=== PATIENT | male | born 1950 | race Caucasian/White ===

== ENCOUNTER 2016-12-17 06:33 | Day surgery (SDC) | payer MEDICARE, BC ==
[2016-12-17] MEDS ORDERED: Lidocaine 2% Viscous Solution 15 ML Cup ONE (06:54)
[2016-12-17] MEDS ORDERED: Lidocaine 4% Top Soln 50 ML Bottle ONE (06:54)
[2016-12-17] MEDS ORDERED: Albuterol/Ipratropium 3.0-0.5 MG/3 ML Neb Soln NEB ONE (07:05)
[2016-12-17] MEDS ORDERED: fentaNYL 100 MCG/2 ML SDV ONE (07:12)
[2016-12-17] MEDS ORDERED: Propofol 200 MG/20 ML SDV ONE (07:12)
[2016-12-17] MEDS ORDERED: Midazolam 1 MG/ML 2 ML SDV ONE (07:13)
[2016-12-17] MEDS ORDERED: Lidocaine 4% Top Soln 4 ML LTA Syringe ONE (07:13)
[2016-12-17] MEDS ORDERED: Dextrose 5%-Lactated Ringers 1,000 ML IV SCH (07:15)
[2016-12-17] MEDS ORDERED: Enoxaparin 100 MG/1 ML Syringe SUBCUT ONE (09:45)
[2016-12-17 11:23] VITALS: BP 124/80
--- NOTE | 2016-12-17 19:21 | OR ---
DATE OF PROCEDURE: 12/17/2016 PREOPERATIVE DIAGNOSIS: Right hilar mass with mediastinal lymphadenopathy. POSTOPERATIVE DIAGNOSIS: Right hilar mass with mediastinal lymphadenopathy. OPERATIVE PROCEDURE: 1. Flexible bronchial washing with tracheobronchial washings:. a. Transbronchial brush biopsies of right upper lobe (01943). b. Bronchoalveolar lavage to the right upper lobe (08551). c. Transbronchial needle aspiration biopsy of precarinal node ([id number]). ANESTHESIA: Topical plus IV sedation. INDICATION FOR PROCEDURE: A 66-year-old male recently presenting with some increasing respiratory symptoms. 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 The patient also has a well-defined mediastinal lymphadenopathy and one of the more well-defined area is noted anterior to the distal most trachea more or less at the origin of the edgar. The plan will be to proceed with a flexible bronchoscopy with brushings, biopsies, and/or bronchoalveolar lavage as indicated along with a transbronchial needle aspiration biopsy of the precarinal node. Potential risks of the procedure were reviewed with the patient and including bleeding, infection, pneumohemothorax and such were reviewed, and they wished to proceed. DETAILS OF PROCEDURE: The patient was taken to the operating room and placed in a supine position. IV sedation was administered, after which the translaryngeal injection of lidocaine was placed. The bronchoscope was then passed through the right side of the nose, visualized hypopharynx and larynx were unremarkable. Cord motion was symmetrical within the trachea. There was no significant tracheal splaying. There was some mucoid secretions diffusely present which were removed with a combination of lidocaine and saline injections. The upper tracheobronchial tree was unremarkable. On the right side, the posterior segment of right upper lobe was somewhat reddened and thickened. No visible tumor was seen; however, to this point diffuse tracheobronchial washings were obtained. Following this, brushings were obtained in the posterior segment of the right upper lobe, followed by a bronchoalveolar lavage, and these were both sent for cytologic evaluation. Minimal bleeding from the brushing and lavage sites was noted. A transbronchial needle aspiration biopsy at two locations in the area just proximal to the edgar and anteriorly were then made. These were then sent in [place]com[place] solution and at that point, no bleeding or other problems noted. The procedure was then concluded. The patient was taken to the recovery room in satisfactory condition. The plan at this point will be to continue the patient on Lovenox and to reestablish whether or not today's biopsies or diagnostic, we should probably know that by later tomorrow afternoon and if these are not diagnostic then the best option would be set up for some needle biopsies, which would be best not to be re-coumadinized. We will contact the patient's tomorrow or the next day depending on when these results become available regarding the plan. The patient being set up for a PET scan in [place] as this can be done earlier than in [place] and then Medical Oncology was going to be set up for thereafter in [place]. Brayan Rhodes MD /[id number]
== END 2016-12-17 11:55 | disposition home or self-care (01) ==
LOC: JP.SDS 06:33
PROVIDERS: ATTEND Surgery
DX: J98.4 Other disorders of lung (principal); J44.9 Chronic obstructive pulmonary disease, unspecified; I87.2 Venous insufficiency (chronic) (peripheral); Z87.891 Personal history of nicotine dependence
CPT/HCPCS: 31623; 31624; 31629; 36415; 85610; 87015; 87070; 87102; 87116; 87205; 87206; 87220; A9270; J2250; J2704; J3010; J7042; J7620; 88112; 88305

== ENCOUNTER 2017-01-16 06:27 | Day surgery (SDC) | payer MEDICARE, BC ==
[2017-01-16] MEDS ORDERED: Lidocaine 1% 50 ML MDV ONE (06:42)
[2017-01-16] MEDS ORDERED: Bupivacaine 0.5%/EPINEPHrine 1:200,000 50 ML MDV ONE (06:43)
[2017-01-16] MEDS ORDERED: Dextrose 5%-Lactated Ringers 1,000 ML IV SCH (06:45)
[2017-01-16] MEDS: ceFAZolin 2 GM in Premix Bag 1 BAG IV ONE ×2 (07:53→11:03)
[2017-01-16] MEDS ORDERED: fentaNYL 100 MCG/2 ML SDV ONE (08:00)
[2017-01-16] MEDS ORDERED: Albuterol/Ipratropium 3.0-0.5 MG/3 ML Neb Soln NEB ONE (08:00)
[2017-01-16] MEDS ORDERED: Propofol 200 MG/20 ML SDV ONE (08:00)
[2017-01-16] MEDS ORDERED: Midazolam 1 MG/ML 2 ML SDV ONE (08:00)
[2017-01-16 10:10] VITALS: BP 121/75
--- NOTE | 2017-01-17 12:21 | OR ---
DATE OF PROCEDURE: 01/16/2017 PREOPERATIVE DIAGNOSIS: Indications for central venous access. POSTOPERATIVE DIAGNOSIS: Indications for central venous access. OPERATIVE PROCEDURE: Insertion of Bard PowerPort via left subclavian vein approach (41510). ANESTHESIA: Local plus IV sedation. OCULAR CARE TECHNOLOGIST: YVONNE Aranda. 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 He is to undergo chemotherapy. To facilitate the chemotherapy treatment, a central access was to be placed. Potential risks of procedure including bleeding, infection, pneumothorax, problems with port becoming infected or occluded were all reviewed with the patient and , and they wished to proceed. DETAILS OF PROCEDURE: The patient was taken to the operating room and placed in a supine position. IV sedation was administered, after which, the upper chest and neck areas were prepped and draped. The left subclavian vein was then cannulated and guidewire manipulated from there into the superior vena cava. Some additional local was injected and a transverse infraclavicular incision was made and carried down through the skin and subcutaneous tissue, pectoralis major fascia, subfascial pouch was then created bluntly, and the port was then placed into the pocket. Catheter was cut such that the tip would lie in the superior vena cava right atrial junction. Over the introducer and peel-away catheter, a Bard port catheter was then placed and good positioning was confirmed fluoroscopically. The incision was then closed with 2 layers of 3-0 Vicryl stitch deep and a 4-0 Vicryl subcuticular stitch. Dressing was then applied after the port had been aspirated with good return, and then re-flushed with heparinized saline. There were no evident complications. The patient was taken to the recovery room in satisfactory condition. Brayan Rhodes MD /[id number]
== END 2017-01-16 10:12 | disposition home or self-care (01) ==
LOC: JP.SDS 06:27
PROVIDERS: ATTEND Surgery
DX: Z45.2 Encounter for adjustment and management of vascular access device (principal); C34.2 Malignant neoplasm of middle lobe, bronchus or lung; Z79.01 Long term (current) use of anticoagulants
CPT/HCPCS: 36415; 36561; 85610; 94640; C1788; J0690; J1642; J2250; J2704; J3010; J7042; J7620

== ENCOUNTER 2017-11-07 10:05 | Inpatient (IN) | payer MEDICARE, BC ==
[2017-11-07] MEDS ORDERED: Albuterol 0.083% 2.5 MG/3 ML Neb Soln NEB ONE ×2 (10:26→11:49)
[2017-11-07] MEDS ORDERED: methylPREDNISolone Sodium Succinate 125 MG/2 ML SDV IVPUSH ONE (10:26)
--- NOTE | 2017-11-07 10:45 | EDM.PDOC ---
ED HPI GENERAL MEDICAL PROBLEM - General Chief Complaint: Respiratory Problem Stated Complaint: SHORTNESS OF BREATH Time Seen by Provider: 11/07/17 10:10 Source of Information: Reports: Patient, Family History Limitations: Reports: No Limitations - History of Present Illness INITIAL COMMENTS - FREE TEXT/NARRATIVE: pt arrived with a history of being very sob. He had very low sats when the first responders arrived. He seemed to not oxgenate as well when the moisture was going. He has a history of lung ca and copd. He uses o2 continuously at home. He has been coughing up some yellow sputum. Onset: Today, Gradual Duration: Hour(s): Location: Reports: Chest Associated Symptoms: Reports: Cough, Shortness of Breath, Weakness - Related Data Allergies Allergy/AdvReac Type Severity Reaction Status Date / Time No Known Allergies Allergy Verified 11/07/17 10:11 Home Meds: Home Meds Multivitamin [Multi-Vitamin Daily] 1 tab PO DAILY 10/02/15 [History] Fluticasone/Salmeterol [Advair Hfa 230-21 Mcg Inhaler] 2 puff INH BID 11/23/15 [ History] Tiotropium [Spiriva Handihaler] 1 diskus INH DAILY 10/12/16 [History] Albuterol/Ipratropium [DuoNeb 3.0-0.5 MG/3 ML] 3 ml INH Q4H PRN 12/13/16 [ History] Tamsulosin [Tamsulosin 24 Hr] 0.4 mg PO DAILY 12/13/16 [History] Albuterol Sulfate [Proair Hfa] 2 puff INH Q4HR PRN 12/17/16 [History] Venlafaxine [Effexor XR] 37.5 mg PO DAILY 01/14/17 [History] Gabapentin [Neurontin] 100 mg PO TID 11/07/17 [History] Rivaroxaban [Xarelto] 20 mg PO DAILY 11/07/17 [History] Past Medical History HEENT History: Reports: Hard of Hearing, Impaired Vision Cardiovascular History: Reports: Blood Clots/VTE/DVT Other Cardiovascular History: blood clot in lung. Right ventricle enlargement Respiratory History: Reports: Bronchitis, Recurrent, COPD, Pneumonia, Recurrent , Sleep Apnea, SOB, Other (See Below) Other Respiratory History: lung ca Gastrointestinal History: Reports: Colon Polyp, GERD, Hemorrhoids Genitourinary History: Reports: BPH Other Genitourinary History: testicular hernia as kid? prostate level elevated to 8 Musculoskeletal History: Reports: Fracture Neurological History: Reports: Concussion Psychiatric History: Reports: Depression Hematologic History: Reports: Anticoagulation Therapy Oncologic (Cancer) History: Reports: Lung - Infectious Disease History Infectious Disease History: Reports: Chicken Pox, Measles, Mumps - Past Surgical History Head Surgeries/Procedures: Reports: None HEENT Surgical History: Reports: None Cardiovascular Surgical History: Reports: None, Vascular Surgery Respiratory Surgical History: Reports: Lung Biopsies, Other (See Below) GI Surgical History: Reports: Colon, EGD Male Surgical History: Reports: Other (See Below) Other Male Surgeries/Procedures: testicular surgery as kid Musculoskeletal Surgical History: Reports: None Dermatological Surgical History: Reports: None Social & Family History - Family History Family Medical History: Noncontributory - Tobacco Use Smoking Status *Q: Former Smoker Years of Tobacco use: 50 Packs/Tins Daily: 1 Used Tobacco, but Quit: Yes Month/Year Tobacco Last Used: Second Hand Smoke Exposure: No - Caffeine Use Caffeine Use: Reports: Coffee - Alcohol Use Days Per Week of Alcohol Use: 0 Number of Drinks Per Day: 1 Total Drinks Per Week: 0 - Recreational Drug Use Recreational Drug Use: No ED ROS GENERAL - Review of Systems Review Of Systems: See Below Constitutional: Reports: Malaise, Decreased Appetite HEENT: Reports: No Symptoms Respiratory: Reports: Shortness of Breath, Wheezing Cardiovascular: Reports: No Symptoms Endocrine: Reports: No Symptoms GI/Abdominal: Reports: No Symptoms : Reports: No Symptoms Musculoskeletal: Reports: No Symptoms Skin: Reports: No Symptoms Neurological: Reports: No Symptoms ED EXAM, GENERAL - Physical Exam Exam: See Below Free Text/Narrative:: pt arrived with increased sob. He had very low o2 satts at home. He was slightly confused at that time. He has been doing alot of talking in his sleep. Exam Limited By: No Limitations General Appearance: Alert, Anxious, Mild Distress, Other (pupils are equal and reactive. ) Ears: Normal TMs Nose: Normal Inspection Throat/Mouth: Normal Inspection Head: Atraumatic Neck: Normal Inspection Respiratory/Chest: Decreased Breath Sounds, Rales, Wheezing Cardiovascular: Regular Rate, Rhythm GI/Abdominal: Soft, Non-Tender (Male) Exam: Normal Inspection Rectal (Males) Exam: Deferred Back Exam: Normal Inspection Extremities: Normal Inspection Neurological: Alert, Oriented, Other (pt is able to answer questions appropiately. ) Psychiatric: Depressed Mood Course - Vital Signs Last Recorded V/S: Last Vital Signs Temp 36.1 C 11/07/17 10:07 Pulse 101 H 11/07/17 12:56 Resp 16 11/07/17 10:07 BP 115/83 11/07/17 11:55 Pulse Ox 92 L 11/07/17 11:55 - Orders/Labs/Meds Orders: Active Orders 24 hr Category Date Time Status EKG Documentation Completion [RC] ASDIRECTED Care 11/07/17 11:53 Active RT Aerosol Therapy [RC] ASDIRECTED Care 11/07/17 10:26 Active RT Aerosol Therapy [RC] ASDIRECTED Care 11/07/17 11:49 Active CULTURE RESPIRATORY + SMEAR [RM] Stat Lab 11/07/17 12:45 Results Sodium Chloride 0.9% [Normal Saline] 1,000 ml Med 11/07/17 12:00 Active IV ASDIRECTED EKG 12 Lead [EK] Routine Ther 11/07/17 11:53 Ordered Medication Orders Sodium Chloride (Normal Saline) 1,000 mls @ 250 mls/hr IV ASDIRECTED UZAIR Last Admin: 11/07/17 12:29 Dose: 250 mls/hr Labs: Laboratory Tests 11/07/17 11/07/17 11/07/17 Range/Units 10:46 10:55 10:55 WBC 4.6 (4.5-11.0) K/uL RBC 3.63 L (4.30-5.90) M/uL Hgb 11.2 L D (12.0-15.0) g/dL Hct 33.1 L (40.0-54.0) % MCV 91 (80-98) fL MCH 31 (27-31) pg MCHC 34 (32-36) % Plt Count 153 (150-400) K/uL Neut % (Auto) 84 H (36-66) % Lymph % (Auto) 6 L (24-44) % [place] % (Auto) 8 H (2-6) % Eos % (Auto) 2 (2-4) % Baso % (Auto) 0 (0-1) % Puncture Site ABG pH (7.350-7.450) ABG pCO2 (35.0-42.0) mmHg ABG pO2 (75.0-100.0) mmHg ABG HCO3 (22.0-26.0) mmol/L ABG Total CO2 (23.0-27.0) mmol/L ABG O2 Saturation (95.0-98.0) % ABG O2 Content (15.0-23.0) %vol ABG Base Excess mm/L ABG Hemoglobin (13.5-18.0) g/dL ABG Oxyhemoglobin % ABG Carboxyhemoglobin (0.0-1.6) % ABG Methemoglobin % Neo Test O2 Delivery Device Oxygen Flow Rate L Sodium 123 L (140-148) mmol/L Potassium 4.1 (3.6-5.2) mmol/L Chloride 85 L (100-108) mmol/L Carbon Dioxide 32 (21-32) mmol/L Anion Gap 10.1 (5.0-14.0) mmol/L BUN 9 D (7-18) mg/dL Creatinine 0.6 L (0.8-1.3) mg/dL Est Cr Clr Drug Dosing 104.37 mL/min Estimated GFR (MDRD) > 60 (>60) Glucose 137 H (74-106) mg/dL Calcium 9.2 (8.5-10.1) mg/dL Total Bilirubin 0.4 (0.2-1.0) mg/dL AST 25 (15-37) U/L ALT 23 (12-78) U/L Alkaline Phosphatase 125 H D (46-116) U/L NT-Pro-B Natriuret Pep 457 H (5-125) pg/mL Total Protein 7.0 (6.4-8.2) g/dL Albumin 3.1 L (3.4-5.0) g/dL Globulin 3.9 H (2.3-3.5) g/dL Albumin/Globulin Ratio 0.8 L (1.2-2.2) 11/07/17 Range/Units 12:03 WBC (4.5-11.0) K/uL RBC (4.30-5.90) M/uL Hgb (12.0-15.0) g/dL Hct (40.0-54.0) % MCV (80-98) fL MCH (27-31) pg MCHC (32-36) % Plt Count (150-400) K/uL Neut % (Auto) (36-66) % Lymph % (Auto) (24-44) % [place] % (Auto) (2-6) % Eos % (Auto) (2-4) % Baso % (Auto) (0-1) % Puncture Site Rt radial ABG pH 7.464 H (7.350-7.450) ABG pCO2 42.9 H (35.0-42.0) mmHg ABG pO2 57.6 L (75.0-100.0) mmHg ABG HCO3 30.4 H (22.0-26.0) mmol/L ABG Total CO2 27.5 H (23.0-27.0) mmol/L ABG O2 Saturation 89.4 L (95.0-98.0) % ABG O2 Content 13.9 L (15.0-23.0) %vol ABG Base Excess 6.3 mm/L ABG Hemoglobin 11.2 L (13.5-18.0) g/dL ABG Oxyhemoglobin 87.7 % ABG Carboxyhemoglobin 1.3 (0.0-1.6) % ABG Methemoglobin 0.6 % Neo Test Pass O2 Delivery Device Nasal cannula Oxygen Flow Rate 3 L Sodium (140-148) mmol/L Potassium (3.6-5.2) mmol/L Chloride (100-108) mmol/L Carbon Dioxide (21-32) mmol/L Anion Gap (5.0-14.0) mmol/L BUN (7-18) mg/dL Creatinine (0.8-1.3) mg/dL Est Cr Clr Drug Dosing mL/min Estimated GFR (MDRD) (>60) Glucose (74-106) mg/dL Calcium (8.5-10.1) mg/dL Total Bilirubin (0.2-1.0) mg/dL AST (15-37) U/L ALT (12-78) U/L Alkaline Phosphatase (46-116) U/L NT-Pro-B Natriuret Pep (5-125) pg/mL Total Protein (6.4-8.2) g/dL Albumin (3.4-5.0) g/dL Globulin (2.3-3.5) g/dL Albumin/Globulin Ratio (1.2-2.2) Meds: Medications Generic Name Dose Route Start Last Admin Trade Name Freq PRN Reason Stop Dose Admin Sodium Chloride 1,000 mls @ 250 mls/hr 11/07/17 12:00 11/07/17 12:29 Normal Saline IV 250 mls/hr ASDIRECTED UZAIR Administration Discontinued Medications Generic Name Dose Route Start Last Admin Trade Name Freq PRN Reason Stop Dose Admin Albuterol 2.5 mg 11/07/17 10:26 11/07/17 10:47 Proventil Neb Soln NEB 11/07/17 10:27 2.5 mg ONETIME ONE Administration Albuterol 2.5 mg 11/07/17 11:49 11/07/17 12:31 Proventil Neb Soln NEB 11/07/17 11:50 2.5 mg ONETIME ONE Administration Diltiazem HCl 10 mg 11/07/17 12:33 11/07/17 12:56 Diltiazem IVPUSH 11/07/17 12:34 Not Given ONETIME ONE Methylprednisolone Sodium Succinate 125 mg 11/07/17 10:26 11/07/17 11:01 Solu-Medrol IVPUSH 11/07/17 10:27 125 mg ONETIME ONE Administration - Re-Assessments/Exams Free Text/Narrative Re-Assessment/Exam: 11/07/17 12:34 ekg shows possible atrial fib. He coughed up some sputum which did appear very purulent. His chest xray show marked changes but does not look different from the previous film. His blood gases do not show co2 retention. 11/07/17 12:36 His na is 123 Departure - Departure Time of Disposition: 13:17 Disposition: Admitted As Inpatient 64 Condition: Fair Clinical Impression: Atrial fibrillation, Bronchitis, Hyponatremia, Lung cancer - Discharge Information Referrals: Mj Shah MD [Primary Care Provider] - Forms: ED Department Discharge Care Plan Goals: admit to Dr cruz - My Orders Last 24 Hours: My Active Orders 11/07/17 10:26 RT Aerosol Therapy [RC] ASDIRECTED 11/07/17 11:49 RT Aerosol Therapy [RC] ASDIRECTED 11/07/17 11:53 EKG Documentation Completion [RC] ASDIRECTED EKG 12 Lead [EK] Routine 11/07/17 12:00 Sodium Chloride 0.9% [Normal Saline] 1,000 ml IV ASDIRECTED 11/07/17 12:45 CULTURE RESPIRATORY + SMEAR [RM] Stat - Assessment/Plan Last 24 Hours: My Active Orders 11/07/17 10:26 RT Aerosol Therapy [RC] ASDIRECTED 11/07/17 11:49 RT Aerosol Therapy [RC] ASDIRECTED 11/07/17 11:53 EKG Documentation Completion [RC] ASDIRECTED EKG 12 Lead [EK] Routine 11/07/17 12:00 Sodium Chloride 0.9% [Normal Saline] 1,000 ml IV ASDIRECTED 11/07/17 12:45 CULTURE RESPIRATORY + SMEAR [RM] Stat
--- NOTE | 2017-11-07 11:26 | CR ---
Portable chest Comparison: August 2017. Findings: There is a [id number] catheter on the left which is unchanged. There is hyperinflation c onsistent with COPD. There is chronic fibrosis throughout the right middle and lower lung elise. The re are also fibrotic changes on the left. There are no acute infiltrates or effusions. Impression: 1. COPD. 2. Chronic interstitial fibrosis.
[2017-11-07] MEDS ORDERED: Sodium Chloride 0.9% 1,000 ML IV SCH (12:00)
[2017-11-07] MEDS ORDERED: Diltiazem 25 MG/5 ML SDV IVPUSH ONE (12:33)
--- NOTE | 2017-11-07 13:50 | PCM.HP ---
H&P History of Present Illness - General Date of Service: 11/07/17 Admit Problem/Dx: Source of Information: Patient, Family, Provider, RN Notes Reviewed History Limitations: Reports: No Limitations - History of Present Illness Initial Comments - Free Text/Narative: Mr. Govea is a 67-year-old gentleman who is admitted through the emergency room with progressive history of increased shortness of breath, significantly worse over the past 2 days. He has a known history of COPD which is oxygen dependent. He also in the past year has been diagnosed with lung cancer and has received chemotherapy as well as recent radiation therapy. Currently is back on chemotherapy having received 2 cycles of his current regimen. Over the past few days his developed a cough productive of colored sputum with marked increase in shortness of breath. Chest x-ray obtained in the emergency department shows no acute findings. White blood cell count is within normal range, arterial blood gases show hypoxia and hypercapnia. Oxygen saturations remain below desired range despite supplemental oxygen. He was also found to be tachycardic on initial evaluation and initial EKG shows evidence of atrial fibrillation with rapid ventricular response. He is now spontaneously converted and has a resting sinus tachycardia. - Related Data Allergies/Adverse Reactions: Allergies Allergy/AdvReac Type Severity Reaction Status Date / Time No Known Allergies Allergy Verified 11/07/17 10:11 Home Medications: Home Meds Multivitamin [Multi-Vitamin Daily] 1 tab PO DAILY 10/02/15 [History] Fluticasone/Salmeterol [Advair Hfa 230-21 Mcg Inhaler] 2 puff INH BID 11/23/15 [ History] Tiotropium [Spiriva Handihaler] 1 diskus INH DAILY 10/12/16 [History] Albuterol/Ipratropium [DuoNeb 3.0-0.5 MG/3 ML] 3 ml INH Q4H PRN 12/13/16 [ History] Tamsulosin [Tamsulosin 24 Hr] 0.4 mg PO DAILY 12/13/16 [History] Albuterol Sulfate [Proair Hfa] 2 puff INH Q4HR PRN 12/17/16 [History] Venlafaxine [Effexor XR] 37.5 mg PO DAILY 01/14/17 [History] Gabapentin [Neurontin] 100 mg PO TID 11/07/17 [History] Rivaroxaban [Xarelto] 20 mg PO DAILY 11/07/17 [History] Past Medical History HEENT History: Reports: Hard of Hearing, Impaired Vision Cardiovascular History: Reports: Blood Clots/VTE/DVT Other Cardiovascular History: blood clot in lung. Right ventricle enlargement Respiratory History: Reports: Bronchitis, Recurrent, COPD, Pneumonia, Recurrent , Sleep Apnea, SOB, Other (See Below) Other Respiratory History: lung ca Gastrointestinal History: Reports: Colon Polyp, GERD, Hemorrhoids Genitourinary History: Reports: BPH Other Genitourinary History: testicular hernia as kid? prostate level elevated to 8 Musculoskeletal History: Reports: Fracture Neurological History: Reports: Concussion Psychiatric History: Reports: Depression Hematologic History: Reports: Anticoagulation Therapy Oncologic (Cancer) History: Reports: Lung - Infectious Disease History Infectious Disease History: Reports: Chicken Pox, Measles, Mumps - Past Surgical History Head Surgeries/Procedures: Reports: None HEENT Surgical History: Reports: None Cardiovascular Surgical History: Reports: None, Vascular Surgery Respiratory Surgical History: Reports: Lung Biopsies, Other (See Below) GI Surgical History: Reports: Colon, EGD Male Surgical History: Reports: Other (See Below) Other Male Surgeries/Procedures: testicular surgery as kid Musculoskeletal Surgical History: Reports: None Dermatological Surgical History: Reports: None Social & Family History - Family History Family Medical History: Noncontributory - Tobacco Use Smoking Status *Q: Former Smoker Years of Tobacco use: 50 Packs/Tins Daily: 1 Used Tobacco, but Quit: Yes Month/Year Tobacco Last Used: 01 Second Hand Smoke Exposure: No - Caffeine Use Caffeine Use: Reports: Coffee - Alcohol Use Days Per Week of Alcohol Use: 0 Number of Drinks Per Day: 1 Total Drinks Per Week: 0 - Recreational Drug Use Recreational Drug Use: No H&P Review of Systems - Review of Systems: Review Of Systems: See Below General: Reports: Diaphoresis, Decreased Appetite. Denies: Fever, Chills HEENT: Reports: No Symptoms Pulmonary: Reports: Shortness of Breath, Wheezing, Cough, Sputum. Denies: Pleuritic Chest Pain, Hemoptysis Cardiovascular: Reports: Dyspnea on Exertion. Denies: Chest Pain, Palpitations , Orthopnea, PND, Edema, Lightheadedness, Syncope Gastrointestinal: Reports: No Symptoms Genitourinary: Reports: No Symptoms Musculoskeletal: Reports: No Symptoms Skin: Reports: No Symptoms Psychiatric: Reports: No Symptoms Neurological: Reports: No Symptoms Hematologic/Lymphatic: Reports: No Symptoms Immunologic: Reports: No Symptoms Exam - Exam Exam: See Below - Vital Signs Vital Signs: Last Vital Signs Temp 96.9 F 11/07/17 10:07 Pulse 101 H 11/07/17 12:56 Resp 16 11/07/17 10:07 BP 115/83 11/07/17 11:55 Pulse Ox 92 L 11/07/17 11:55 Weight: 140 lb - Exam Quality Assessment: Supplemental Oxygen, DVT Prophylaxis General: Alert, Oriented, Cooperative, Moderate Distress HEENT: Conjunctiva Clear, Hearing Intact, Normal Nasal Septum, Posterior Pharynx Clear, Pupils Equal. No: Mucosa Moist & [place]: Supple, Trachea Midline, +2 Carotid Pulse wo Bruit Lungs: Decreased Breath Sounds, Rhonchi, Wheezing. No: Crackles, Rales, Rub Cardiovascular: Regular Rhythm, Normal S1, Normal S2, Tachycardia. No: Systolic Murmur, Diastolic Murmur GI/Abdominal Exam: Soft, Non-Tender, No Organomegaly, No Distention, Hernia ( Umbilical) Back Exam: Normal Inspection, Full Range of Motion Extremities: Non-Tender, No Pedal Edema Skin: Warm, Dry, Intact Neurological: Cranial Nerves Intact, Strength Equal Bilateral, Normal Speech, Normal Tone, Sensation Intact. No: Focal Deficit Neuro Extensive - Mental Status: Alert, Oriented x3, Normal Mood/Affect, Normal Cognition, Memory Intact - Patient Data Lab Results Last 24 hrs: Laboratory Results - last 24 hr 11/07/17 11/07/17 11/07/17 Range/Units 10:46 10:55 10:55 WBC 4.6 (4.5-11.0) K/uL RBC 3.63 L (4.30-5.90) M/uL Hgb 11.2 L D (12.0-15.0) g/dL Hct 33.1 L (40.0-54.0) % MCV 91 (80-98) fL MCH 31 (27-31) pg MCHC 34 (32-36) % Plt Count 153 (150-400) K/uL Neut % (Auto) 84 H (36-66) % Lymph % (Auto) 6 L (24-44) % [place] % (Auto) 8 H (2-6) % Eos % (Auto) 2 (2-4) % Baso % (Auto) 0 (0-1) % Puncture Site ABG pH (7.350-7.450) ABG pCO2 (35.0-42.0) mmHg ABG pO2 (75.0-100.0) mmHg ABG HCO3 (22.0-26.0) mmol/L ABG Total CO2 (23.0-27.0) mmol/L ABG O2 Saturation (95.0-98.0) % ABG O2 Content (15.0-23.0) %vol ABG Base Excess mm/L ABG Hemoglobin (13.5-18.0) g/dL ABG Oxyhemoglobin % ABG Carboxyhemoglobin (0.0-1.6) % ABG Methemoglobin % Neo Test O2 Delivery Device Oxygen Flow Rate L Sodium 123 L (140-148) mmol/L Potassium 4.1 (3.6-5.2) mmol/L Chloride 85 L (100-108) mmol/L Carbon Dioxide 32 (21-32) mmol/L Anion Gap 10.1 (5.0-14.0) mmol/L BUN 9 D (7-18) mg/dL Creatinine 0.6 L (0.8-1.3) mg/dL Est Cr Clr Drug Dosing 104.37 mL/min Estimated GFR (MDRD) > 60 (>60) Glucose 137 H (74-106) mg/dL Calcium 9.2 (8.5-10.1) mg/dL Total Bilirubin 0.4 (0.2-1.0) mg/dL AST 25 (15-37) U/L ALT 23 (12-78) U/L Alkaline Phosphatase 125 H D (46-116) U/L NT-Pro-B Natriuret Pep 457 H (5-125) pg/mL Total Protein 7.0 (6.4-8.2) g/dL Albumin 3.1 L (3.4-5.0) g/dL Globulin 3.9 H (2.3-3.5) g/dL Albumin/Globulin Ratio 0.8 L (1.2-2.2) 11/07/17 Range/Units 12:03 WBC (4.5-11.0) K/uL RBC (4.30-5.90) M/uL Hgb (12.0-15.0) g/dL Hct (40.0-54.0) % MCV (80-98) fL MCH (27-31) pg MCHC (32-36) % Plt Count (150-400) K/uL Neut % (Auto) (36-66) % Lymph % (Auto) (24-44) % [place] % (Auto) (2-6) % Eos % (Auto) (2-4) % Baso % (Auto) (0-1) % Puncture Site Rt radial ABG pH 7.464 H (7.350-7.450) ABG pCO2 42.9 H (35.0-42.0) mmHg ABG pO2 57.6 L (75.0-100.0) mmHg ABG HCO3 30.4 H (22.0-26.0) mmol/L ABG Total CO2 27.5 H (23.0-27.0) mmol/L ABG O2 Saturation 89.4 L (95.0-98.0) % ABG O2 Content 13.9 L (15.0-23.0) %vol ABG Base Excess 6.3 mm/L ABG Hemoglobin 11.2 L (13.5-18.0) g/dL ABG Oxyhemoglobin 87.7 % ABG Carboxyhemoglobin 1.3 (0.0-1.6) % ABG Methemoglobin 0.6 % Neo Test Pass O2 Delivery Device Nasal cannula Oxygen Flow Rate 3 L Sodium (140-148) mmol/L Potassium (3.6-5.2) mmol/L Chloride (100-108) mmol/L Carbon Dioxide (21-32) mmol/L Anion Gap (5.0-14.0) mmol/L BUN (7-18) mg/dL Creatinine (0.8-1.3) mg/dL Est Cr Clr Drug Dosing mL/min Estimated GFR (MDRD) (>60) Glucose (74-106) mg/dL Calcium (8.5-10.1) mg/dL Total Bilirubin (0.2-1.0) mg/dL AST (15-37) U/L ALT (12-78) U/L Alkaline Phosphatase (46-116) U/L NT-Pro-B Natriuret Pep (5-125) pg/mL Total Protein (6.4-8.2) g/dL Albumin (3.4-5.0) g/dL Globulin (2.3-3.5) g/dL Albumin/Globulin Ratio (1.2-2.2) Result Diagrams: 11/07/17 10:55 11/07/17 10:55 Wilfrido Results Last 24 hrs: Microbiology 11/07/17 12:45 Gram Stain - Final Endotrachael Aspirate *Q Meaningful Use (ADM) - VTE *Q VTE Criteria *Q: VTE Pharmacological Contraindications *Q: High INR Value - VTE Risk Assess *Q Each Risk Factor Represents 1 Point: Abnormal Pulmonary Function (COPD) Total Score 1 Point Risk Factors: 1 Each Risk Factor Represents 2 Points: Age 60 - 74 Years, Malignancy (present or previous) Total Score 2 Point Risk Factors: 4 Each Risk Factor Represents 3 Points: History of DVT/PE Total Score 3 Point Risk Factors: 3 Each Risk Factor Represents 5 Points: None Total Score 5 Point Risk Factors: 0 Venous Thromboembolism Risk Factor Score *Q: 8 - Stroke *Q Stroke Criteria *Q: - AMI *Q AMI Criteria *Q: Problem List Initiated/Reviewed/Updated: Yes Orders Last 24hrs: Active Orders 24 hr Category Date Time Status Patient Status Manage Transfer [TRANSFER] Routine ADT 11/07/17 13:43 Ordered EKG Documentation Completion [RC] ASDIRECTED Care 11/07/17 11:53 Active RT Aerosol Therapy [RC] ASDIRECTED Care 11/07/17 10:26 Active RT Aerosol Therapy [RC] ASDIRECTED Care 11/07/17 11:49 Active CULTURE RESPIRATORY + SMEAR [RM] Stat Lab 11/07/17 12:45 Results Sodium Chloride 0.9% [Normal Saline] 1,000 ml Med 11/07/17 12:00 Active IV ASDIRECTED Resuscitation Status Routine Resus Stat 11/07/17 13:45 Ordered EKG 12 Lead [EK] Routine Ther 11/07/17 11:53 Ordered Medication Orders Sodium Chloride (Normal Saline) 1,000 mls @ 250 mls/hr IV ASDIRECTED UZAIR Last Admin: 11/07/17 12:29 Dose: 250 mls/hr Assessment/Plan Comment:: ASSESSMENT AND PLAN COPD EXACERBATION SECONDARY TO BRONCHITIS-no evidence of underlying infiltrate, he does have known lung cancer, currently receiving treatment. -Sputum culture -Levofloxacin 500 mg IV every 24 hours ACUTE ON CHRONIC HYPOXIC AND HYPERCAPNIC RESPIRATORY FAILURE -Supplemental oxygen as needed, goal oxygen saturation no greater than 92% to avoid further CO2 retention -Nebulized albuterol and duo nebs -Solu-Medrol 40 mg IV daily 6 hours -Consider use of noninvasive positive pressure ventilation if he experiences further respiratory compromise LUNG CANCER-metastatic, currently receiving palliative chemotherapy PREVIOUS HISTORY OF PULMONARY EMBOLI -Continue outpatient anticoagulation HYPONATREMIA-likely secondary to dehydration -IV normal saline for hydration -Recheck sodium level in a.m. PALLIATIVE CARE-he does not want to consider further aggressive interventions including intubation or mechanical ventilation MAINTENANCE ISSUES -DVT prophylaxis; current therapy should provide adequate DVT prophylaxis -GI prophylaxis; not indicated -Dickey catheter; not indicated -Nutrition; regular diet -Nicotine dependence; not required CODE STATUS-DNR/DNI ADMISSION STATUS-patient will be admitted to inpatient status, expect at least a 2 night hospital stay for evaluation and management of problems as outlined above. At the time of this admission I do not reasonably expected evaluation and management of this problem will require more than a 96 hour hospital stay. DISPOSITION-anticipate discharge to home after the hospital stay. PRIMARY CARE PROVIDER-Dr. Silva
[2017-11-07] MEDS ORDERED: Polyethylene Glycol 3350 Powder 17 GM Packet PO PRN (14:31)
[2017-11-07] MEDS ORDERED: Ondansetron 4 MG/2 ML SDV IV PRN (14:31)
[2017-11-07] MEDS ORDERED: Acetaminophen 325 MG Tab PO PRN (14:31)
[2017-11-07] MEDS ORDERED: Albuterol 0.083% 2.5 MG/3 ML Neb Soln NEB PRN (14:31)
[2017-11-07] MEDS ORDERED: Magnesium Hydroxide 400 MG/5 ML Susp 30 ML Cup PO PRN (14:31)
[2017-11-07] MEDS ORDERED: Sodium Chloride 0.9% 10 ML Syringe FLUSH PRN (14:31)
[2017-11-07] MEDS: Levofloxacin/Dextrose 5%-Water 500 MG in Premix Bag 1 BAG IV SCH (14:50)
[2017-11-07] MEDS: Albuterol/Ipratropium 3.0-0.5 MG/3 ML Neb Soln NEB SCH ×2 (14:53→21:40)
[2017-11-07] MEDS ORDERED: Albuterol 8 GM Inhaler INH PRN (18:36)
[2017-11-07] MEDS ORDERED: Albuterol/Ipratropium 3.0-0.5 MG/3 ML Neb Soln INH PRN (18:36)
[2017-11-07] MEDS: Sodium Chloride 0.9% 1,000 ML IV SCH (19:50)
[2017-11-07] MEDS: methylPREDNISolone Sodium Succinate 40 MG/1 ML SDV IVPUSH SCH ×2 (19:54→23:39)
[2017-11-07] MEDS ORDERED: Formoterol/Mometasone 200-5 MCG 8.8 GM Inhaler IH SCH (21:00)
[2017-11-07] MEDS: Pramipexole 0.5 MG Tab PO SCH (21:49)
[2017-11-07] MEDS: Gabapentin 100 MG Cap PO SCH (21:49)
[2017-11-07] MEDS: oxyCODONE 5 MG Tab PO PRN (22:13)
[2017-11-08] MEDS: Sodium Chloride 0.9% 1,000 ML IV SCH (03:46)
[2017-11-08] MEDS: methylPREDNISolone Sodium Succinate 40 MG/1 ML SDV IVPUSH SCH ×4 (05:02→23:33)
[2017-11-08] MEDS: Albuterol/Ipratropium 3.0-0.5 MG/3 ML Neb Soln NEB SCH ×4 (07:38→21:14)
[2017-11-08] MEDS: Formoterol/Mometasone 200-5 MCG 8.8 GM Inhaler IH SCH ×2 (07:44→21:13)
[2017-11-08] MEDS: Tiotropium Inhaler 18 MCG Inhalation Powder Cap Kit of 5 INH SCH (08:01)
[2017-11-08] MEDS: Gabapentin 100 MG Cap PO SCH ×3 (08:17→21:14)
[2017-11-08] MEDS: Tamsulosin 0.4 MG Cap.ER PO SCH (08:17)
[2017-11-08] MEDS: Venlafaxine 37.5 MG Cap.ER PO SCH (08:17)
[2017-11-08] MEDS: Rivaroxaban 10 MG Tab PO SCH (08:17)
[2017-11-08] MEDS: oxyCODONE 5 MG Tab PO PRN ×2 (08:22→19:21)
[2017-11-08] MEDS ORDERED: Tiotropium Inhaler 18 MCG Inhalation Powder Cap Kit of 5 INH SCH (09:00)
--- NOTE | 2017-11-08 10:01 | PCM.PN ---
- General Info Date of Service: 11/08/17 Subjective Update: Mr. Govea is improved since admission with less shortness of breath, cough for the most part remains nonproductive. Continues to have mild sinus tachycardia, vital signs otherwise stable and he has been afebrile. Sodium level remains low despite hydration. - Patient Data Vitals - Most Recent: Last Vital Signs Temp 97.6 F 11/08/17 08:00 Pulse 102 H 11/08/17 07:46 Resp 22 H 11/08/17 08:00 BP 142/79 H 11/08/17 08:00 Pulse Ox 90 L 11/08/17 08:00 Weight - Most Recent: 147 lb 11.355 oz I&O - Last 24 Hours: Intake & Output 11/07/17 11/08/17 11/08/17 22:59 06:59 14:59 Intake Total 1840 1545 Output Total 300 350 325 Balance 1540 1195 -325 Lab Results Last 24 Hours: Laboratory Results - last 24 hr 11/08/17 11/08/17 11/08/17 Range/Units 05:45 05:45 05:45 WBC 2.3 L (4.5-11.0) K/uL RBC 3.21 L (4.30-5.90) M/uL Hgb 10.0 L (12.0-15.0) g/dL Hct 29.0 L (40.0-54.0) % MCV 90 (80-98) fL MCH 31 (27-31) pg MCHC 35 (32-36) % Plt Count 168 (150-400) K/uL Neut % (Auto) 90 H (36-66) % Lymph % (Auto) 7 L (24-44) % [place] % (Auto) 4 (2-6) % Eos % (Auto) 0 L (2-4) % Baso % (Auto) 0 (0-1) % Puncture Site R radial ABG pH 7.447 (7.350-7.450) ABG pCO2 40.5 (35.0-42.0) mmHg ABG pO2 62.7 L (75.0-100.0) mmHg ABG HCO3 27.5 H (22.0-26.0) mmol/L ABG Total CO2 25.4 (23.0-27.0) mmol/L ABG O2 Saturation 91.2 L (95.0-98.0) % ABG O2 Content 12.6 L (15.0-23.0) %vol ABG Base Excess 3.6 mm/L ABG Hemoglobin 10.0 L (13.5-18.0) g/dL ABG Oxyhemoglobin 89.6 % ABG Carboxyhemoglobin 1.3 (0.0-1.6) % ABG Methemoglobin 0.4 % Neo Test Passed O2 Delivery Device Nasal cannula Oxygen Flow Rate 2 L Sodium 124 L (140-148) mmol/L Potassium 4.8 (3.6-5.2) mmol/L Chloride 89 L (100-108) mmol/L Carbon Dioxide 28 (21-32) mmol/L Anion Gap 11.8 (5.0-14.0) mmol/L BUN 14 D (7-18) mg/dL Creatinine 0.8 (0.8-1.3) mg/dL Est Cr Clr Drug Dosing 82.59 mL/min Estimated GFR (MDRD) > 60 (>60) Glucose 146 H (74-106) mg/dL Calcium 9.2 (8.5-10.1) mg/dL Magnesium 1.4 L (1.8-2.4) mg/dL Med Orders - Current: Current Medications Acetaminophen (Tylenol) 650 mg PO Q4H PRN PRN Reason: Pain (Mild 1-3)/fever Albuterol (Proventil Neb Soln) 2.5 mg NEB Q4H PRN PRN Reason: Shortness Of Breath/wheezing Albuterol (Ventolin Hfa) 0 gm INH Q4H PRN PRN Reason: Shortness of Breath Albuterol/Ipratropium (Duoneb 3.0-0.5 Mg/3 Ml) 3 ml NEB QIDRT [facility] Last Admin: 11/08/17 07:38 Dose: 3 ml Albuterol/Ipratropium (Duoneb 3.0-0.5 Mg/3 Ml) 3 ml INH Q4H PRN PRN Reason: Shortness of Breath Demeclocycline HCl (Demeclocycline) 150 mg PO Q12H [facility] Gabapentin (Neurontin) 100 mg PO TID [facility] Last Admin: 11/08/17 08:17 Dose: 100 mg Levofloxacin/Dextrose 500 mg/ (Premix) 100 mls @ 100 mls/hr IV Q24H [facility] Last Admin: 11/07/17 14:50 Dose: 100 mls/hr Magnesium Sulfate 2 gm/ Premix 50 mls @ 25 mls/hr IV Q6H [facility] Stop: 11/08/17 17:29 Magnesium Hydroxide (Milk Of Magnesia) 30 ml PO Q12H PRN PRN Reason: Constipation Magnesium Oxide (Magnesium Oxide) 400 mg PO BID [facility] Methylprednisolone Sodium Succinate (Solu-Medrol) 40 mg IVPUSH Q6H [facility] Last Admin: 11/08/17 05:02 Dose: 40 mg Mometasone Furoate/Formoterol Fumar (Dulera 200-5 Mcg) 2 puff IH BIDRT [facility] Last Admin: 11/08/17 07:44 Dose: 2 puff Ondansetron HCl (Zofran) 4 mg IV Q4H PRN PRN Reason: Nausea/Vomiting Oxycodone HCl (Oxycodone) 10 mg PO Q4H PRN PRN Reason: Pain (moderate 4-6) Last Admin: 11/08/17 08:22 Dose: 10 mg Polyethylene Glycol (Miralax) 17 gm PO DAILY PRN PRN Reason: Constipation Pramipexole Dihydrochloride (Mirapex) 0.25 mg PO BEDTIME [facility] Last Admin: 11/07/17 21:49 Dose: 0.25 mg Rivaroxaban (Xarelto) 20 mg PO WITHBREAKFAST [facility] Last Admin: 11/08/17 08:17 Dose: 20 mg Senna/Docusate Sodium (Senna Plus) 1 tab PO BID PRN PRN Reason: Constipation Sodium Chloride (Saline Flush) 10 ml FLUSH ASDIRECTED PRN PRN Reason: Keep Vein Open Tamsulosin HCl (Flomax) 0.4 mg PO DAILY [facility] Last Admin: 11/08/17 08:17 Dose: 0.4 mg Tiotropium [place] (Spiriva Handihaler) 18 mcg INH DAILYRT [facility] Last Admin: 11/08/17 08:01 Dose: 18 mcg Venlafaxine HCl (Effexor Xr) 37.5 mg PO DAILY [facility] Last Admin: 11/08/17 08:17 Dose: 37.5 mg Discontinued Medications Albuterol (Proventil Neb Soln) 2.5 mg NEB ONETIME ONE Stop: 11/07/17 10:27 Last Admin: 11/07/17 10:47 Dose: 2.5 mg Albuterol (Proventil Neb Soln) 2.5 mg NEB ONETIME ONE Stop: 11/07/17 11:50 Last Admin: 11/07/17 12:31 Dose: 2.5 mg Diltiazem HCl (Diltiazem) 10 mg IVPUSH ONETIME ONE Stop: 11/07/17 12:34 Last Admin: 11/07/17 12:56 Dose: Not Given Sodium Chloride (Normal Saline) 1,000 mls @ 250 mls/hr IV ASDIRECTED [facility] Last Admin: 11/07/17 12:29 Dose: 250 mls/hr Sodium Chloride (Normal Saline) 1,000 mls @ 125 mls/hr IV ASDIRECTED [facility] Last Admin: 11/08/17 03:46 Dose: 125 mls/hr Methylprednisolone Sodium Succinate (Solu-Medrol) 125 mg IVPUSH ONETIME ONE Stop: 11/07/17 10:27 Last Admin: 11/07/17 11:01 Dose: 125 mg Mometasone Furoate/Formoterol Fumar (Dulera 200-5 Mcg) 2 puff IH BIDRT [facility] Last Admin: 11/07/17 21:48 Dose: 2 puff - Exam Quality Assessment: Supplemental Oxygen, DVT Prophylaxis General: Alert, Oriented, Mild Distress Lungs: Decreased Breath Sounds. No: Rales, Rhonchi, Wheezing Cardiovascular: Regular Rhythm, No Murmurs, Tachycardia GI/Abdominal Exam: Soft, Non-Tender, No Organomegaly, No Distention Extremities: Non-Tender, No Pedal Edema Skin: Warm, Dry, Intact - Problem List Review Problem List Initiated/Reviewed/Updated: Yes - My Orders Last 24 Hours: My Active Orders 11/07/17 13:45 Resuscitation Status Routine 11/07/17 14:31 Patient Status [ADT] Routine Ambulate [RC] QID Cardiac Monitoring [RC] Q6H Height and Weight [RC] DAILY Intake and Output [RC] QSHIFT Notify Provider Vital Signs [RC] ASDIRECTED Oxygen Therapy [RC] DAILY Pulse Oximetry [RC] CONTINUOUS RT Aerosol Therapy [RC] ASDIRECTED Up to Chair [RC] QID Vital Signs [RC] Q2H Acetaminophen [Tylenol] 650 mg PO Q4H PRN Albuterol [Proventil Neb Soln] 2.5 mg NEB Q4H PRN Docusate Sodium/Sennosides [Senna Plus] 1 tab PO BID PRN Magnesium Hydroxide [Milk of Magnesia] 30 ml PO Q12H PRN Ondansetron [Zofran] 4 mg IV Q4H PRN Polyethylene Glycol 3350 [MiraLAX] 17 gm PO DAILY PRN Sodium Chloride 0.9% [Saline Flush] 10 ml FLUSH ASDIRECTED PRN oxyCODONE 10 mg PO Q4H PRN Peripheral IV Insertion Adult [OM.PC] Routine VTE Pharmacological Contraindications [AST] Per Unit Routine 11/07/17 15:00 Albuterol/Ipratropium [DuoNeb 3.0-0.5 MG/3 ML] 3 ml NEB QIDRT Levofloxacin/Dextrose 5%-Water [Levaquin in D5W 500 MG/100 ML] 500 mg Premix Bag 1 bag IV Q24H 11/07/17 17:00 methylPREDNISolone Sod Succ [Solu-MEDROL] 40 mg IVPUSH Q6H 11/07/17 18:36 Albuterol [Ventolin HFA] 0 gm INH Q4H PRN Albuterol/Ipratropium [DuoNeb 3.0-0.5 MG/3 ML] 3 ml INH Q4H PRN 11/07/17 21:00 Gabapentin [Neurontin] 100 mg PO TID Pramipexole [Mirapex] 0.25 mg PO BEDTIME 11/07/17 Lunch Regular Diet [DIET] 11/08/17 07:30 Mometasone/Formoterol [Dulera 200-5 MCG] 2 puff IH BIDRT 11/08/17 08:00 Rivaroxaban [Xarelto] 20 mg PO WITHBREAKFAST Tiotropium [Spiriva HandiHaler] 18 mcg INH DAILYRT 11/08/17 09:00 Magnesium Oxide 400 mg PO BID Tamsulosin [Flomax] 0.4 mg PO DAILY Venlafaxine [Effexor XR] 37.5 mg PO DAILY 11/08/17 09:30 Magnesium Sulfate/Water [Magnesium Sulfate 2 GM in Water 50 ML] 2 gm Premix Bag 1 bag IV Q6H 11/08/17 09:57 Convert IV to Saline Lock [OM.PC] Routine 11/08/17 10:00 Demeclocycline 150 mg PO Q12H 11/09/17 05:00 BASIC METABOLIC PANEL,BMP [CHEM] Timed CBC WITH AUTO DIFF [HEME] Timed MAGNESIUM [CHEM] Timed - Plan Plan:: ASSESSMENT AND PLAN COPD EXACERBATION SECONDARY TO BRONCHITIS-no evidence of underlying infiltrate, he does have known lung cancer, currently receiving treatment. -Sputum culture -Levofloxacin 500 mg IV every 24 hours ACUTE ON CHRONIC HYPOXIC AND HYPERCAPNIC RESPIRATORY FAILURE-oxygenation has improved but he continues to require relatively high level of supplemental oxygen -Supplemental oxygen as needed, goal oxygen saturation no greater than 92% to avoid further CO2 retention -Nebulized albuterol and duo nebs -Solu-Medrol 40 mg IV daily 6 hours -Consider use of noninvasive positive pressure ventilation if he experiences further respiratory compromise LUNG CANCER-metastatic, currently receiving palliative chemotherapy PREVIOUS HISTORY OF PULMONARY EMBOLI -Continue outpatient anticoagulation 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 PALLIATIVE CARE-he does not want to consider further aggressive interventions including intubation or mechanical ventilation MAINTENANCE ISSUES -DVT prophylaxis; current therapy should provide adequate DVT prophylaxis -GI prophylaxis; not indicated -Dickey catheter; not indicated -Nutrition; regular diet -Nicotine dependence; not required CODE STATUS-DNR/DNI ADMISSION STATUS-patient will be admitted to inpatient status, expect at least a 2 night hospital stay for evaluation and management of problems as outlined above. At the time of this admission I do not reasonably expected evaluation and management of this problem will require more than a 96 hour hospital stay. DISPOSITION-anticipate discharge to home after the hospital stay. PRIMARY CARE PROVIDER-Dr. Silva
[2017-11-08] MEDS: Magnesium Sulfate/Water 2 GM in Premix Bag 1 BAG IV SCH ×2 (11:28→16:33)
[2017-11-08] MEDS: Magnesium Oxide 400 MG Tab PO SCH ×2 (11:28→21:14)
[2017-11-08] MEDS: Levofloxacin/Dextrose 5%-Water 500 MG in Premix Bag 1 BAG IV SCH (15:16)
[2017-11-08] MEDS: Pramipexole 0.5 MG Tab PO SCH (21:14)
[2017-11-09] MEDS: methylPREDNISolone Sodium Succinate 40 MG/1 ML SDV IVPUSH SCH ×2 (04:48→11:14)
[2017-11-09] MEDS: Albuterol/Ipratropium 3.0-0.5 MG/3 ML Neb Soln NEB SCH ×2 (07:40→10:54)
[2017-11-09] MEDS: Formoterol/Mometasone 200-5 MCG 8.8 GM Inhaler IH SCH (07:40)
[2017-11-09] MEDS: Tiotropium Inhaler 18 MCG Inhalation Powder Cap Kit of 5 INH SCH (07:40)
[2017-11-09] MEDS: Rivaroxaban 10 MG Tab PO SCH (08:02)
[2017-11-09] MEDS: Gabapentin 100 MG Cap PO SCH (08:03)
[2017-11-09] MEDS: Tamsulosin 0.4 MG Cap.ER PO SCH (08:03)
[2017-11-09] MEDS: Magnesium Oxide 400 MG Tab PO SCH (08:03)
[2017-11-09] MEDS: Venlafaxine 37.5 MG Cap.ER PO SCH (08:03)
[2017-11-09] MEDS ORDERED: Sodium Phosphate,Monobasic/Sodium Phosphate,Dibasic Enema 133 ML Bottle RECTAL PRN (09:25)
[2017-11-09] MEDS ORDERED: Bisacodyl 10 MG Supp RECTAL ONE (10:00)
--- NOTE | 2017-11-09 10:16 | PCM.DCSUM1 ---
Discharge Summary - Discharge Data Discharge Date: 11/09/17 Discharge Disposition: Home, Self-Care 01 Condition: Fair - Discharge Diagnosis/Problem(s) (1) Atrial fibrillation SNOMED Code(s): 52007996 ICD Code: I48.91 - UNSPECIFIED ATRIAL FIBRILLATION Status: Acute Current Visit: Yes (2) Bronchitis SNOMED Code(s): 26376745 ICD Code: J40 - BRONCHITIS, NOT SPECIFIED ACUTE OR CHRONIC Status: Acute Current Visit: Yes (3) Lung cancer SNOMED Code(s): 724366195 ICD Code: C34.90 - MALIGNANT NEOPLASM OF UNSP PART OF UNSP BRONCHUS OR LUNG Status: Acute Current Visit: Yes (4) COPD with acute exacerbation SNOMED Code(s): 776376273 ICD Code: J44.1 - CHRONIC OBSTRUCTIVE PULMONARY DISEASE W (ACUTE) EXACERBATION Status: Acute Current Visit: No (5) Hypercapnia SNOMED Code(s): 54711847 ICD Code: R06.89 - OTHER ABNORMALITIES OF BREATHING Status: Acute Current Visit: Yes (6) Hypoxia SNOMED Code(s): 460547143 ICD Code: R09.02 - HYPOXEMIA Status: Acute Current Visit: Yes (7) Hyponatremia SNOMED Code(s): 34852052 ICD Code: E87.1 - HYPO-OSMOLALITY AND HYPONATREMIA Status: Acute Current Visit: Yes - Patient Summary/Data Hospital Course: Mr. Govea is a 67-year-old gentleman who was admitted through the emergency room with progressive history of increased shortness of breath, significantly worse over the past 2 days prior to admission. He has a known history of COPD which is oxygen dependent. He also in the past year has been diagnosed with lung cancer and has received chemotherapy as well as recent radiation therapy. Currently is back on chemotherapy having received 2 cycles of his current regimen. Over a period of a few days prior to admission he developed a cough productive of colored sputum with marked increase in shortness of breath. Chest x-ray obtained in the emergency department shows no acute findings. White blood cell count was within normal range, arterial blood gases show hypoxia and hypercapnia. Oxygen saturations remain below desired range despite supplemental oxygen. He was also found to be tachycardic on initial evaluation and initial EKG shows evidence of atrial fibrillation with rapid ventricular response. He spontaneously converted to sinus rhythm with regular rate in the emergency department. On admission he was given IV fluids for hydration, nebulizer therapy, IV Solu- Medrol, and IV antibiotic therapy with levofloxacin. Over the next 2 days of hospital stay he improved and felt that he was back to almost baseline by the time of discharge. Oxygenation improved and he remained hemodynamically stable. Sodium level was monitored during the hospital stay and increased from 123 to 128 by the time of discharge. Consideration was given to possible SIADH related to his underlying malignancy. I've recommended that he have follow-up BMP at the time of his clinic appointment. He will remain on supplemental oxygen and will be discharged home with oral prednisone for 3 days and an additional 5 days of antibiotic therapy. Follow-up appointment will be scheduled with his primary care provider within one week and he already has a follow-up appointment scheduled with oncology in 2 days. Activity will be as tolerated and he will resume his usual diet. - Patient Instructions Diet: Usual Diet as Tolerated Activity: As Tolerated Other/Special Instructions: Please schedule follow-up appointment with Dr. Silva within one week. Laboratory studies should be obtained the time of follow -up appointment including a BMP. - Discharge Plan Prescriptions/Med Rec: Levofloxacin [Levaquin] 500 mg PO DAILY #4 tab Prednisone [IJD: predniSONE] 40 mg PO DAILY #6 tab Home Medications: Home Meds Multivitamin [Multi-Vitamin Daily] 1 tab PO DAILY 10/02/15 [History] Fluticasone/Salmeterol [Advair Hfa 230-21 Mcg Inhaler] 2 puff INH BID 11/23/15 [ History] Tiotropium [Spiriva Handihaler] 1 diskus INH DAILY 10/12/16 [History] Albuterol/Ipratropium [DuoNeb 3.0-0.5 MG/3 ML] 3 ml INH Q4H PRN 12/13/16 [ History] Tamsulosin [Flomax] 0.4 mg PO DAILY 12/13/16 [History] Albuterol Sulfate [Proair Hfa] 2 puff INH Q4HR PRN 12/17/16 [History] Venlafaxine [Effexor XR] 37.5 mg PO DAILY 01/14/17 [History] Gabapentin [Neurontin] 100 mg PO TID 11/07/17 [History] Pramipexole [Mirapex] 0.25 mg PO BEDTIME 11/07/17 [History] Rivaroxaban [Xarelto] 20 mg PO DAILY 11/07/17 [History] Levofloxacin [Levaquin] 500 mg PO DAILY #4 tab 11/09/17 [Rx] Prednisone [IJD: predniSONE] 40 mg PO DAILY #6 tab 11/09/17 [Rx] Referrals: Mj Shah MD [Primary Care Provider] - - Patient Data Vitals - Most Recent: Last Vital Signs Temp 97.9 F 11/09/17 07:39 Pulse 92 11/09/17 07:41 Resp 16 11/09/17 10:00 BP 145/87 H 11/09/17 10:00 Pulse Ox 93 L 11/09/17 10:00 Weight - Most Recent: 147 lb 11.355 oz I&O - Last 24 hours: Intake & Output 11/08/17 11/09/17 11/09/17 22:59 06:59 14:59 Intake Total 1520 277 Output Total 650 800 400 Balance 870 -523 -400 Lab Results - Last 24 hrs: Laboratory Results - last 24 hr 11/09/17 11/09/17 Range/Units 04:20 04:20 WBC 8.0 (4.5-11.0) K/uL RBC 3.19 L (4.30-5.90) M/uL Hgb 9.9 L (12.0-15.0) g/dL Hct 29.1 L (40.0-54.0) % MCV 91 (80-98) fL MCH 31 (27-31) pg MCHC 34 (32-36) % Plt Count 184 (150-400) K/uL Neut % (Auto) 95 H (36-66) % Lymph % (Auto) 2 L (24-44) % [place] % (Auto) 3 (2-6) % Eos % (Auto) 0 L (2-4) % Baso % (Auto) 0 (0-1) % Sodium 128 L (140-148) mmol/L Potassium 4.9 (3.6-5.2) mmol/L Chloride 94 L (100-108) mmol/L Carbon Dioxide 30 (21-32) mmol/L Anion Gap 8.9 (5.0-14.0) mmol/L BUN 18 (7-18) mg/dL Creatinine 0.6 L (0.8-1.3) mg/dL Est Cr Clr Drug Dosing 110.12 mL/min Estimated GFR (MDRD) > 60 (>60) Glucose 113 H (74-106) mg/dL Calcium 9.0 (8.5-10.1) mg/dL Phosphorus 3.0 (2.5-4.9) mg/dL Magnesium 2.0 D (1.8-2.4) mg/dL Total Bilirubin 0.2 (0.2-1.0) mg/dL AST 28 (15-37) U/L ALT 27 (12-78) U/L Alkaline Phosphatase 93 (46-116) U/L NT-Pro-B Natriuret Pep 806 H (5-125) pg/mL Total Protein 5.9 L (6.4-8.2) g/dL Albumin 2.6 L (3.4-5.0) g/dL Globulin 3.3 (2.3-3.5) g/dL Albumin/Globulin Ratio 0.8 L (1.2-2.2) Med Orders - Current: Current Medications Acetaminophen (Tylenol) 650 mg PO Q4H PRN PRN Reason: Pain (Mild 1-3)/fever Albuterol (Proventil Neb Soln) 2.5 mg NEB Q4H PRN PRN Reason: Shortness Of Breath/wheezing Albuterol (Ventolin Hfa) 0 gm INH Q4H PRN PRN Reason: Shortness of Breath Albuterol/Ipratropium (Duoneb 3.0-0.5 Mg/3 Ml) 3 ml NEB QIDRT [facility] Last Admin: 11/09/17 07:40 Dose: 3 ml Albuterol/Ipratropium (Duoneb 3.0-0.5 Mg/3 Ml) 3 ml INH Q4H PRN PRN Reason: Shortness of Breath Demeclocycline HCl (Demeclocycline) 150 mg PO Q12H [facility] Gabapentin (Neurontin) 100 mg PO TID [facility] Last Admin: 11/09/17 08:03 Dose: 100 mg Heparin Sodium (Porcine) (Heparin Lock Flush 100 Units/Ml) 500 units FLUSH ASDIRECTED PRN PRN Reason: protocol Levofloxacin/Dextrose 500 mg/ (Premix) 100 mls @ 100 mls/hr IV Q24H [facility] Last Admin: 11/08/17 15:16 Dose: 100 mls/hr Magnesium Hydroxide (Milk Of Magnesia) 30 ml PO Q12H PRN PRN Reason: Constipation Magnesium Oxide (Magnesium Oxide) 400 mg PO BID [facility] Last Admin: 11/09/17 08:03 Dose: 400 mg Methylprednisolone Sodium Succinate (Solu-Medrol) 40 mg IVPUSH Q6H [facility] Last Admin: 11/09/17 04:48 Dose: 40 mg Mometasone Furoate/Formoterol Fumar (Dulera 200-5 Mcg) 2 puff IH BIDRT [facility] Last Admin: 11/09/17 07:40 Dose: 2 puff Ondansetron HCl (Zofran) 4 mg IV Q4H PRN PRN Reason: Nausea/Vomiting Oxycodone HCl (Oxycodone) 10 mg PO Q4H PRN PRN Reason: Pain (moderate 4-6) Last Admin: 11/08/17 19:21 Dose: 10 mg Polyethylene Glycol (Miralax) 17 gm PO DAILY PRN PRN Reason: Constipation Last Admin: 11/08/17 19:22 Dose: 17 gm Pramipexole Dihydrochloride (Mirapex) 0.25 mg PO BEDTIME [facility] Last Admin: 11/08/17 21:14 Dose: 0.25 mg Rivaroxaban (Xarelto) 20 mg PO WITHBREAKFAST [facility] Last Admin: 11/09/17 08:02 Dose: 20 mg Senna/Docusate Sodium (Senna Plus) 1 tab PO BID PRN PRN Reason: Constipation Sodium Biphosphate/Sodium Phosphate (Fleet Enema) 133 ml RECTAL ONETIME PRN PRN Reason: Constipation Sodium Chloride (Saline Flush) 10 ml FLUSH ASDIRECTED PRN PRN Reason: Keep Vein Open Last Admin: 11/09/17 04:49 Dose: 10 ml Tamsulosin HCl (Flomax) 0.4 mg PO DAILY [facility] Last Admin: 11/09/17 08:03 Dose: 0.4 mg Tiotropium [place] (Spiriva Handihaler) 18 mcg INH DAILYRT [facility] Last Admin: 11/09/17 07:40 Dose: 18 mcg Venlafaxine HCl (Effexor Xr) 37.5 mg PO DAILY [facility] Last Admin: 11/09/17 08:03 Dose: 37.5 mg Discontinued Medications Albuterol (Proventil Neb Soln) 2.5 mg NEB ONETIME ONE Stop: 11/07/17 10:27 Last Admin: 11/07/17 10:47 Dose: 2.5 mg Albuterol (Proventil Neb Soln) 2.5 mg NEB ONETIME ONE Stop: 11/07/17 11:50 Last Admin: 11/07/17 12:31 Dose: 2.5 mg Bisacodyl (Dulcolax) 10 mg RECTAL ONETIME ONE Stop: 11/09/17 10:01 Last Admin: 11/09/17 09:56 Dose: 10 mg Diltiazem HCl (Diltiazem) 10 mg IVPUSH ONETIME ONE Stop: 11/07/17 12:34 Last Admin: 11/07/17 12:56 Dose: Not Given Heparin Sodium (Porcine) (Heparin Lock Flush 100 Units/Ml) Confirm Administered Dose 500 units .ROUTE .STK-MED ONE Stop: 11/09/17 04:46 Last Admin: 11/09/17 04:50 Dose: 500 units Sodium Chloride (Normal Saline) 1,000 mls @ 250 mls/hr IV ASDIRECTED [facility] Last Admin: 11/07/17 12:29 Dose: 250 mls/hr Sodium Chloride (Normal Saline) 1,000 mls @ 125 mls/hr IV ASDIRECTED [facility] Last Admin: 11/08/17 03:46 Dose: 125 mls/hr Magnesium Sulfate 2 gm/ Premix 50 mls @ 25 mls/hr IV Q6H [facility] Stop: 11/08/17 17:29 Last Admin: 11/08/17 16:33 Dose: 25 mls/hr Methylprednisolone Sodium Succinate (Solu-Medrol) 125 mg IVPUSH ONETIME ONE Stop: 11/07/17 10:27 Last Admin: 11/07/17 11:01 Dose: 125 mg Mometasone Furoate/Formoterol Fumar (Dulera 200-5 Mcg) 2 puff IH BIDRT [facility] Last Admin: 11/07/17 21:48 Dose: 2 puff *Q Meaningful Use (DIS) - VTE *Q VTE Criteria *Q: VTE Pharmacological Contraindications *Q: High INR Value - Stroke *Q Stroke Criteria *Q: - AMI *Q AMI Criteria *Q:
[2017-11-09 11:40] VITALS: BP 145/90
== END 2017-11-09 12:45 | disposition home or self-care (01) | DRG 190 ==
LOC: JP.ED 10:05 → JP.ICU 13:43
PROVIDERS: ADMIT Hospitalist; ATTEND Hospitalist
DX: J44.0 Chronic obstructive pulmonary disease with (acute) lower respiratory infection (principal); J96.21 Acute and chronic respiratory failure with hypoxia; J96.22 Acute and chronic respiratory failure with hypercapnia; E87.1 Hypo-osmolality and hyponatremia; C34.90 Malignant neoplasm of unspecified part of unspecified bronchus or lung; J44.1 Chronic obstructive pulmonary disease with (acute) exacerbation; E86.0 Dehydration; Z99.81 Dependence on supplemental oxygen; Z66 Do not resuscitate; Z51.5 Encounter for palliative care; Z87.891 Personal history of nicotine dependence; R06.02 Shortness of breath; R05 Cough; R53.1 Weakness; I48.91 Unspecified atrial fibrillation; R00.0 Tachycardia, unspecified; Z86.711 Personal history of pulmonary embolism; Z86.718 Personal history of other venous thrombosis and embolism; G47.30 Sleep apnea, unspecified; N40.0 Benign prostatic hyperplasia without lower urinary tract symptoms; F32.9 Major depressive disorder, single episode, unspecified; Z92.21 Personal history of antineoplastic chemotherapy; Z92.3 Personal history of irradiation; Z87.01 Personal history of pneumonia (recurrent); H54.7 Unspecified visual loss; H91.90 Unspecified hearing loss, unspecified ear; Z79.01 Long term (current) use of anticoagulants; Z79.52 Long term (current) use of systemic steroids
CPT/HCPCS: 36415; 36600; 71045 ×2; 80053; 82803; 83880; 85025; 87070; 87205; 93005; 94640 ×2; 96361; 96374; 99285; J2930; J7040; 80048; 83735; 84100; 94664; 94667; A9270-GY; C1751; J1642; J1956; J2920; J3475; J7050; J7620

== ENCOUNTER 2017-11-11 02:13 | Emergency (ER) | payer MEDICARE, BC ==
[2017-11-11 02:37] VITALS: BP 146/92
[2017-11-11] MEDS ORDERED: Bacitracin Oint 1 GM U/D Packet TOP ONE (02:59)
== END 2017-11-11 03:20 | disposition home or self-care (01) ==
LOC: JP.ED 02:13
DX: S51.812A Laceration without foreign body of left forearm, initial encounter (principal); S00.81XA Abrasion of other part of head, initial encounter; J44.9 Chronic obstructive pulmonary disease, unspecified; Z88.8 Allergy status to other drugs, medicaments and biological substances; W19.XXXA Unspecified fall, initial encounter
CPT/HCPCS: 99283